=== PATIENT | female | born 1985 | race Caucasian/White ===

== ENCOUNTER 2019-03-19 00:33 | Inpatient (IN) | payer OTHER ==
[2019-03-19] MEDS ORDERED: NACL 0.9% 3 ML SYG IV (01:30)
[2019-03-19] MEDS ORDERED: DOCUSATE SODIUM 100 MG CAP PO (01:30)
[2019-03-19] MEDS ORDERED: ONDANSETRON 4 MG INJ IV (01:30)
[2019-03-19] MEDS ORDERED: VANCOMYCIN IV PER PHARMACY XX (01:30)
[2019-03-19] MEDS: SOD CHLORIDE 0.9% 1,000 ML IV ×2 (01:31→14:50)
[2019-03-19] MEDS: morphine 2 MG INJ IV ×3 (01:43→17:10)
[2019-03-19] MEDS ORDERED: VANCOMYCIN 1.5 GM/NS 250 ML 250 ML IVPB (02:00)
[2019-03-19 02:05] LABS: ADD MAN DIFF? NO
[2019-03-19 02:11] LABS: WHITE BLOOD COUNT 9.2 10^3/ul (4.8-10.8)
[2019-03-19 02:11] LABS: BASOPHILS % 0.4 % (0.0-2.0); EOSINOPHILS # 0.1 10^3/ul (0.0-0.5); HEMOGLOBIN 10.5 g/dl (12.0-16.0); LYMPHOCYTES # 2.3 10^3/ul (0.8-2.9); LYMPHOCYTES % 25.3 % (15.0-51.0); MEAN CORPUSCULAR HEMOGLOBIN 29.7 pg (29.0-33.0); MEAN CORPUSCULAR HGB CONC 31.8 g/dl (32.0-37.0); MEAN CORPUSCULAR VOLUME 93.2 fl (82.0-101.0); MEAN PLATELET VOLUME 9.7 fl (7.4-10.4); MONOCYTE # 0.6 10^3/ul (0.3-0.9); MONOCYTES % 6.8 % (0.0-11.0); NEUTROPHIL # 6.1 10^3/ul (1.6-7.5); NEUTROPHILS % 65.8 % (39.0-77.0); NUCLEATED RED BLOOD CELLS% 0.2 /100WBC (0.0-0.0); PLATELET COUNT 272 10^3/UL (140-415); RED BLOOD COUNT 3.54 10^6/ul (4.20-5.40); RED CELL DISTRIBUTION WIDTH 13.3 % (11.5-14.5)
[2019-03-19 02:24] LABS: ALANINE AMINOTRANSFERASE 40 IU/L (13-69); ALBUMIN 2.7 g/dl (3.3-4.9); ALKALINE PHOSPHATASE 88 IU/L (42-121); ANION GAP 2 (5-13); ASPARTATE AMINO TRANSFERASE 51 IU/L (15-46); BILIRUBIN,INDIRECT 0.6 mg/dl (0-1.1); BILIRUBIN,TOTAL 0.6 mg/dl (0.2-1.3); BLOOD UREA NITROGEN 9 mg/dl (7-20); CARBON DIOXIDE 28 mmol/L (21-31); CHLORIDE 109 mmol/L (97-110); CREATININE 0.72 mg/dl (0.44-1.00); Estimated GFR > 60 mL/min (>60); GLUCOSE 120 mg/dl (70-220); POTASSIUM 3.9 mmol/L (3.5-5.1); SODIUM 139 mmol/L (135-144); TOTAL PROTEIN 5.7 g/dl (6.1-8.1)
[2019-03-19 02:25] LABS: HEMOGLOBIN A1C 5.6 % (0-5.9)
[2019-03-19 02:49] LABS: ETHANOL < 10.0 mg/dl (0-0)
[2019-03-19] MEDS: CIPROFLOXACIN 500 MG TAB PO ×2 (05:41→17:10)
[2019-03-19] MEDS: HEPARIN 5,000 UNIT/1 ML VIAL SC ×3 (05:48→22:35)
[2019-03-19] MEDS ORDERED: CIPROFLOXACIN 500 MG TAB NGT (06:00)
[2019-03-19] MEDS: VANCOMYCIN 750 MG (PMX) 250 ML IVPB ×2 (08:35→16:27)
[2019-03-19 11:37] LABS: BARBITURATES Negative (NEGATIVE); BENZODIAZEPINES Positive (NEGATIVE); CANNABINOIDS Negative (NEGATIVE); COCAINE Negative (NEGATIVE); OPIATES Positive (NEGATIVE)
[2019-03-19 11:39] LABS: AMPHETAMINE/METHAMPHETAMINE POSITIVE (NEGATIVE)
[2019-03-19] MEDS: HYDROCODONE/APAP (5/325) TAB PO (19:02)
[2019-03-20] MEDS: VANCOMYCIN 750 MG (PMX) 250 ML IVPB ×2 (00:26→08:17)
[2019-03-20] MEDS: SOD CHLORIDE 0.9% 1,000 ML IV ×2 (03:51→08:18)
[2019-03-20] MEDS: CIPROFLOXACIN 500 MG TAB PO ×2 (06:49→18:18)
[2019-03-20] MEDS: morphine 2 MG INJ IV ×4 (06:50→22:37)
[2019-03-20] MEDS: HEPARIN 5,000 UNIT/1 ML VIAL SC ×3 (06:59→22:36)
[2019-03-20 07:31] LABS: ADD MAN DIFF? NO
[2019-03-20 07:36] LABS: BASOPHILS % 0.5 % (0.0-2.0); EOSINOPHILS # 0.2 10^3/ul (0.0-0.5); EOSINOPHILS % 2.6 % (0.0-7.0); HEMATOCRIT 34.5 % (37.0-47.0); HEMOGLOBIN 11.1 g/dl (12.0-16.0); LYMPHOCYTES # 2.1 10^3/ul (0.8-2.9); LYMPHOCYTES % 27.1 % (15.0-51.0); MEAN CORPUSCULAR HEMOGLOBIN 29.8 pg (29.0-33.0); MEAN CORPUSCULAR HGB CONC 32.2 g/dl (32.0-37.0); MEAN CORPUSCULAR VOLUME 92.7 fl (82.0-101.0); MEAN PLATELET VOLUME 9.6 fl (7.4-10.4); MONOCYTE # 0.6 10^3/ul (0.3-0.9); MONOCYTES % 7.4 % (0.0-11.0); NEUTROPHIL # 4.8 10^3/ul (1.6-7.5); NEUTROPHILS % 61.9 % (39.0-77.0); PLATELET COUNT 305 10^3/UL (140-415); RED BLOOD COUNT 3.72 10^6/ul (4.20-5.40); RED CELL DISTRIBUTION WIDTH 13.3 % (11.5-14.5)
[2019-03-20 07:36] LABS: WHITE BLOOD COUNT 7.8 10^3/ul (4.8-10.8)
[2019-03-20 07:56] LABS: PHOSPHORUS 3.9 mg/dl (2.5-4.9)
[2019-03-20 07:56] LABS: MAGNESIUM 1.8 mg/dl (1.7-2.5)
[2019-03-20 07:57] LABS: ANION GAP 4 (5-13); BLOOD UREA NITROGEN 12 mg/dl (7-20); CARBON DIOXIDE 24 mmol/L (21-31); CHLORIDE 109 mmol/L (97-110); CREATININE 0.66 mg/dl (0.44-1.00); Estimated GFR > 60 mL/min (>60); GLUCOSE 94 mg/dl (70-220); POTASSIUM 4.2 mmol/L (3.5-5.1); SODIUM 137 mmol/L (135-144)
[2019-03-20 08:04] LABS: VANCOMYCIN,TROUGH 9.4 ug/ml (10.0-20.0)
[2019-03-20] MEDS: HYDROCODONE/APAP (5/325) TAB PO (09:33)
[2019-03-20] MEDS: VANCOMYCIN 1 GM 250 ML IVPB ×2 (16:28→23:51)
[2019-03-20] MEDS: LORAZEPAM 2 MG INJ IV (21:08)
[2019-03-21] MEDS: CIPROFLOXACIN 500 MG TAB PO (05:12)
[2019-03-21] MEDS: morphine 2 MG INJ IV ×4 (05:13→18:33)
[2019-03-21] MEDS: HEPARIN 5,000 UNIT/1 ML VIAL SC ×3 (05:23→22:55)
[2019-03-21 05:42] LABS: ADD MAN DIFF? NO
[2019-03-21 05:46] LABS: WHITE BLOOD COUNT 8.2 10^3/ul (4.8-10.8)
[2019-03-21 05:46] LABS: BASOPHILS % 0.4 % (0.0-2.0); EOSINOPHILS # 0.2 10^3/ul (0.0-0.5); EOSINOPHILS % 2.7 % (0.0-7.0); LYMPHOCYTES # 2.4 10^3/ul (0.8-2.9); LYMPHOCYTES % 29.9 % (15.0-51.0); MEAN CORPUSCULAR HEMOGLOBIN 29.1 pg (29.0-33.0); MEAN CORPUSCULAR HGB CONC 31.4 g/dl (32.0-37.0); MEAN CORPUSCULAR VOLUME 92.6 fl (82.0-101.0); MEAN PLATELET VOLUME 10.3 fl (7.4-10.4); MONOCYTE # 0.6 10^3/ul (0.3-0.9); MONOCYTES % 7.7 % (0.0-11.0); NEUTROPHIL # 4.8 10^3/ul (1.6-7.5); NEUTROPHILS % 58.8 % (39.0-77.0); PLATELET COUNT 359 10^3/UL (140-415); RED BLOOD COUNT 3.78 10^6/ul (4.20-5.40); RED CELL DISTRIBUTION WIDTH 13.2 % (11.5-14.5)
[2019-03-21 06:12] LABS: PHOSPHORUS 4.8 mg/dl (2.5-4.9)
[2019-03-21 06:12] LABS: MAGNESIUM 1.8 mg/dl (1.7-2.5)
[2019-03-21 06:13] LABS: ANION GAP 6 (5-13); BLOOD UREA NITROGEN 12 mg/dl (7-20); CALCIUM 8.3 mg/dl (8.4-10.2); CARBON DIOXIDE 26 mmol/L (21-31); CHLORIDE 107 mmol/L (97-110); CREATININE 0.67 mg/dl (0.44-1.00); Estimated GFR > 60 mL/min (>60); GLUCOSE 128 mg/dl (70-220); POTASSIUM 3.9 mmol/L (3.5-5.1); SODIUM 139 mmol/L (135-144)
[2019-03-21] MEDS: CHOLECALCIFEROL 1,000 UNIT TAB PO (08:38)
[2019-03-21] MEDS: ASCORBIC ACID 500 MG TAB PO (08:38)
[2019-03-21] MEDS: ACETAMINOPHEN 325 MG TAB PO ×2 (08:38→20:32)
[2019-03-21] MEDS: VANCOMYCIN 1 GM 250 ML IVPB (08:40)
[2019-03-21] MEDS: LORAZEPAM 2 MG INJ IV ×2 (14:51→22:55)
[2019-03-21 15:53] LABS: VANCOMYCIN,TROUGH 16.5 ug/ml (10.0-20.0)
[2019-03-21] MEDS: CLINDAMYCIN 600 MG/D5W (PMX) 50 ML IVPB (22:55)
[2019-03-21] MEDS: HYDROCODONE/APAP (5/325) TAB PO (22:59)
[2019-03-22 05:45] LABS: ADD MAN DIFF? NO
[2019-03-22 05:50] LABS: BASOPHILS % 0.5 % (0.0-2.0); EOSINOPHILS # 0.2 10^3/ul (0.0-0.5); EOSINOPHILS % 2.7 % (0.0-7.0); HEMATOCRIT 34.6 % (37.0-47.0); HEMOGLOBIN 11.2 g/dl (12.0-16.0); LYMPHOCYTES # 2.4 10^3/ul (0.8-2.9); LYMPHOCYTES % 32.4 % (15.0-51.0); MEAN CORPUSCULAR HEMOGLOBIN 29.6 pg (29.0-33.0); MEAN CORPUSCULAR HGB CONC 32.4 g/dl (32.0-37.0); MEAN CORPUSCULAR VOLUME 91.3 fl (82.0-101.0); MEAN PLATELET VOLUME 9.9 fl (7.4-10.4); MONOCYTE # 0.7 10^3/ul (0.3-0.9); MONOCYTES % 9.1 % (0.0-11.0); NEUTROPHIL # 4.1 10^3/ul (1.6-7.5); NEUTROPHILS % 54.9 % (39.0-77.0); PLATELET COUNT 396 10^3/UL (140-415); RED BLOOD COUNT 3.79 10^6/ul (4.20-5.40); RED CELL DISTRIBUTION WIDTH 12.8 % (11.5-14.5)
[2019-03-22 05:50] LABS: WHITE BLOOD COUNT 7.5 10^3/ul (4.8-10.8)
[2019-03-22 06:14] LABS: ANION GAP 5 (5-13); BLOOD UREA NITROGEN 12 mg/dl (7-20); CALCIUM 8.6 mg/dl (8.4-10.2); CARBON DIOXIDE 28 mmol/L (21-31); CHLORIDE 106 mmol/L (97-110); CREATININE 0.71 mg/dl (0.44-1.00); Estimated GFR > 60 mL/min (>60); GLUCOSE 89 mg/dl (70-220); POTASSIUM 4.1 mmol/L (3.5-5.1); SODIUM 139 mmol/L (135-144)
[2019-03-22] MEDS: HEPARIN 5,000 UNIT/1 ML VIAL SC ×3 (06:21→21:57)
[2019-03-22] MEDS: CLINDAMYCIN 600 MG/D5W (PMX) 50 ML IVPB ×3 (06:22→21:56)
[2019-03-22 06:46] LABS: PHOSPHORUS 4.5 mg/dl (2.5-4.9)
[2019-03-22 06:46] LABS: MAGNESIUM 2.1 mg/dl (1.7-2.5)
[2019-03-22] MEDS: ASCORBIC ACID 500 MG TAB PO (08:05)
[2019-03-22] MEDS: morphine 2 MG INJ IV ×2 (08:05→15:32)
[2019-03-22] MEDS: CHOLECALCIFEROL 1,000 UNIT TAB PO (08:05)
[2019-03-22] MEDS: HYDROCODONE/APAP (5/325) TAB PO (10:50)
[2019-03-22] MEDS: ACET/BUTAL/CAFF TAB PO (17:29)
[2019-03-22] MEDS: LORAZEPAM 2 MG INJ IV (20:19)
[2019-03-23] MEDS: HYDROCODONE/APAP (5/325) TAB PO (03:02)
[2019-03-23] MEDS: CLINDAMYCIN 600 MG/D5W (PMX) 50 ML IVPB (05:49)
[2019-03-23] MEDS: HEPARIN 5,000 UNIT/1 ML VIAL SC (05:55)
[2019-03-23] MEDS: CHOLECALCIFEROL 1,000 UNIT TAB PO (08:18)
[2019-03-23] MEDS: ASCORBIC ACID 500 MG TAB PO (08:18)
[2019-03-23] MEDS: morphine 2 MG INJ IV (09:58)
[2019-03-23] MEDS: BISACODYL (EC) 5 MG TAB PO (09:58)
[2019-03-23] MEDS: ACETAMINOPHEN 325 MG TAB PO (13:18)
== END 2019-03-23 13:35 | disposition home or self-care (01) | DRG 603 ==
LOC: 2NE 00:33
DX: L03.116 Cellulitis of left lower limb (principal); L03.115 Cellulitis of right lower limb; F15.10 Other stimulant abuse, uncomplicated; D64.9 Anemia, unspecified; E66.9 Obesity, unspecified; Z68.29 Body mass index [BMI] 29.0-29.9, adult
CPT/HCPCS: 80048; 80053; 80202; 80307; 82306; 82652; 83036; 83735; 84100; 85025